=== PATIENT | female | born 1985 | race African-American/Black ===

== ENCOUNTER 2019-08-31 05:24 | Emergency (ER) | payer MEDICAID ==
[~2019-08-31] VITALS: Ht 162.6 cm; Wt 81.3 kg
[2019-08-31 05:37] VITALS: BP 132/97; Ht 162.6 cm; Wt 81.3 kg
== END 2019-08-31 06:52 | disposition home or self-care (01) ==
LOC: ED 05:24
DX: R10.9 Unspecified abdominal pain (principal); L98.9 Disorder of the skin and subcutaneous tissue, unspecified; Z88.0 Allergy status to penicillin

== ENCOUNTER 2019-10-24 15:21 | Emergency (ER) | payer MEDICAID ==
[~2019-10-24] VITALS: Ht 162.6 cm; Wt 83.5 kg
[2019-10-24 15:33] VITALS: Ht 162.6 cm; Wt 83.5 kg
[2019-10-24 16:46] VITALS: BP 111/76
== END 2019-10-24 16:46 | disposition home or self-care (01) ==
LOC: ED 15:21
DX: N39.0 Urinary tract infection, site not specified (principal); Z88.0 Allergy status to penicillin
CPT/HCPCS: J1885